=== PATIENT | female | born 1990 | race Two or more races ===

== ENCOUNTER → 2018-09-11 | Outpatient (CLI) | END | disposition home or self-care (01) ==

== ENCOUNTER → 2018-10-20 | Outpatient (CLI) | payer OTHER ==
[~2018-10-20] MED LIST: ASPI-1044 PO; GABA300C16 PO; TYL500 PO
== END | disposition home or self-care (01) ==
LOC: LAB 08:00
PROVIDERS: ATTEND Orthopaedic Surgery Adult Reconstructive Orthopaedic Surgery
DX: Z01.818 Encounter for other preprocedural examination (principal)

== ENCOUNTER → 2018-10-20 | Outpatient (CLI) | payer OTHER ==
--- NOTE | 2018-10-21 08:55 | RADRPT ---
PROCEDURE: Pelvis and left hip study CLINICAL INDICATION: Pain TECHNIQUE: AP pelvis and 2 AP and frog lateral views of the left hip were performed. 4 images are a vailable for review. COMPARISON: None. FINDINGS: There are 2 fixation pins involving the left supra-acetabular region. No evidence of acute fractures or dislocations. Moderate degenerate joint disease left hip with adjacent articular eburnation and rodrigues bchondral cyst formation involving the left femoral head. Slight flattening of the left femoral head and avascular necrosis cannot be excluded. An MRI of the left hip may be helpful. Mild degenerate linnette nt disease right hip. Soft tissues are otherwise unremarkable. IMPRESSION: 1. Fixation of the left supra-acetabular region without acute fracture dislocation. 2. Moderate degenerate joint disease left hip. Slight flattening and irregularity left femoral head and rule out avascular necrosis. 3. Mild degenerate joint disease of the right hip. RPTAT:AAJJ Physician Saranya Date Time Electronically viewed and signed by Physician Saranya on 10/21/2018 08:55 /
--- NOTE | 2018-10-22 15:09 | CONS ---
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 The patient has been having problems for the last several years. The patient's pain is an 8/10. The patient is here for preoperative visit. Face to Face Evaluation For Home Health Care: This is to certify that after date of planned surgery patient will be in need of intermittent shelter care, physical therapy and/or occupational therapy as patient will be home bound. This patient is under my care and I have authorized the services on this plan of care and will periodically review the plan. Objective Reviewed in chart. Within normal limits Exam General: Awake, alert, in no acute distress, pleasant and cooperative Heart: regular rhythm Lungs: breathing comfortably, no tachypnea or dyspnea Musculoskeletal: Well developed obese female in no apparent distress. Gait demonstrates a severe Trendelenburg with antalgic components and short leg component. Standing, the pelvis is level and supine there is a true leg length discrepancy, with the left leg 0.51.0 cm short. No tenderness over trochanteric bursa or IT band. ----- Range of motion: Flexion: 60 degrees Extension: 0 degrees Internal rotation: 0 degrees External rotation: 10 degrees Abduction: 30 degrees Adduction: 0 degrees ----- Sitting there is no pelvic obliquity. Pain at the extremes of motion of the affected hip. Skin was intact throughout both lower extremities. Sensation intact to light touch in a sural, saphenous, deep peroneal, superficial peroneal, medial and lateral plantar nerve distribution. Neurovascular exam showed 5/5 strength in the abductors, quads, EHL/tibialis anterior/gastroc. Normal and symmetrical pulses were palpated in both the dorsalis pedis and posterior tibial arteries. There is no sign of venous stasis. Assessment/Plan Chief Complaint/Hosp Course The patient has osteoarthritis of the left hip. Additional discussion was held again regarding her young age and almost certain need for a revision in the future secondary to wear. I do feel that the benefits outweigh the risk even in her young age as her symptoms are severe and a total hip arthroplasty would provide the most optimal outcome. Medical Clearance pending. ----- A lengthy discussion was held, where the patient was told that if and when the symptoms are intolerable, elective total hip replacement should be considered. The operative procedure was explained using diagrams and/or three-dimensional models. The rehabilitation, the potential risks, benefits and alternatives were discussed at length. Specific risks discussed included but were not limited to excessive blood loss and the need for transfusion and therefore the risk of transmissible disease or transfusion reaction, deep infection and the potential need for repetitive debridements, implant removal, long-term antibiotic therapy, possibly requiring deep venous access, leg-length discrepancy, dislocation, possibly recurrent, with the need for closed versus open reduction, bracing, femoral or acetabular fracture and the need for further surgery for fixation, neurovascular injury with temporary or permanent numbness, tingling, weakness or paralysis, deep venous thrombosis, pulmonary embolism and , persistent pain, weakness, or limp, late aseptic loosening and the need for revision, polyethylene wear-induced osteolysis and related problems, and finally, a wide variety of unanticipated medical problems. The opportunity to ask questions and address any concerns was provided. The patient would like to proceed with scheduling. Face to Face Evaluation For Home Health Care: This is to certify that after date of planned surgery patient will be in need of intermittent shelter care, physical therapy and/or occupational therapy as patient will be home bound. This patient is under my care and I have authorized the services on this plan of care and will periodically review the plan. Plan: Left RICK VTE risk stratification: Average VTE prophylaxis: Aspirin 81 mg twice daily Diabetes management: None Pain control: Standard Telemetry: No MRSA: Pending MALDONADO RICH MD Oct 22, 2018 15:09
== END | disposition home or self-care (01) ==
LOC: HKI 13:29
PROVIDERS: ATTEND Orthopaedic Surgery Adult Reconstructive Orthopaedic Surgery
DX: M16.12 Unilateral primary osteoarthritis, left hip (principal); Q65.89 Other specified congenital deformities of hip
CPT/HCPCS: 73502; Z7500; G0463

== ENCOUNTER → 2018-11-20 | Outpatient (CLI) | payer OTHER ==
--- NOTE | 2018-11-20 16:41 | CONS ---
Consult Date/Type/Reason Admit Date/Time Initial Consult Date Date/Time of Note DATE: 11/20/18 TIME: 16:32 Subjective DOS: 11/04/2018 Procedure: Left primary RICK 2 weeks s/p left RICK for developmental dysplasia of the hip who returns today for follow up. The patient is doing well overall. Patient was instructed touchdown weightbearing only secondary to fixation of the acetabular component. However she did not maintain this and has been using a cane. Pain is minimal. However she does continue to have some nausea. Narcotic Pain medication: none Gait Aids: cane Pain better than before surgery: Yes Pleased with outcome. Objective Exam General: Alert, oriented x3. No Acute Distress. Heart: Regular rate and rhythm. Lungs: No respiratory distress. No accessory muscle use. MUSCULOSKELETAL: Left lower Extremity: Incision clean, dry, intact. No skin breakdown, no surrounding erythema. Sensation intact to light touch in a sural, saphenous, deep peroneal, superficial peroneal, medial and lateral plantar nerve distribution. Motor is intact, patient able to dorsiflex and plantarflex ankle and extend and flex great toe. Dorsalis Pedis pulse +2, Brisk capillary refill. Compartments are soft. Rises from seated position without difficulty. Results/Medications Home Meds Active Scripts Gabapentin* (Gabapentin*) 300 Mg Capsule, 300 MG PO QHS for 30 Days, #30 CAP Prov:MALDONADO RICH MD 11/06/18 Aspirin Delayed Release (Aspirin Delayed Release) 81 Mg Tablet.dr, 81 MG PO BID for 42 Days, #84 TAB Prov:MALDONADO RICH MD 11/06/18 Acetaminophen* (Tylenol*) 500 Mg Tab, 1000 MG PO Q8 for 7 Days, TAB Prov:MALDONADO RICH MD 11/06/18 Imaging Xrays obtained in clinic today and personally reviewed by myself: AP pelvis and AP/Lat of the left hip demonstrate hip s/p RICK with hip reduced. Bone graft and multiple screws are seen. There is no interval change in cup position. Components in good position and alignment. No signs of wear, osteolysis, loosening, component failure, or fracture. No acute complications. Assessment/Plan Hospital Course (Demo Recall) Shante Salmon is doing well 2 weeks s/p left RICK for development of dysplasia of the hip. She was supposed to be touchdown weightbearing for approximately 6 weeks until bony ingrowth. However she has been more or less weightbearing as tolerated with a cane. I have instructed her to return back to touchdown weightbearing and the reasons for that. She confirmed that she understood these instructions and will go back to her crutches and walker. At 6 weeks she will be allowed to weight-bear 50% if everything looks good on x-rays. -Touchdown weightbearing left lower extremity - Posterior Hip precuations: - DVT Prophylaxis: ASA 81 mg twice daily - FU 4 weeks for repeat clinical and radiographic exam - Antibiotic dental prophylaxis for any cleaning or procedure MALDONADO RICH MD Nov 20, 2018 16:41
--- NOTE | 2018-11-21 11:28 | RADRPT ---
PROCEDURE: XR left Hip. CLINICAL INDICATION: Pain TECHNIQUE: AP and frog leg lateral views of the left hip were obtained. COMPARISON: 11/05/2018 FINDINGS: There are stable postoperative changes of total left hip arthroplasty. The hardware is intact and wel l aligned. No periprosthetic fracture or lucency is seen. A sclerotic area near the superolateral asp ect of the acetabular component may represent bone cement. There are two pin fragments in the left il iac bone superior to the hip arthroplasty hardware. Surgical jodi are seen along the lateral aspec t of the left thigh. IMPRESSION: 1. Stable postoperative changes of total left hip arthroplasty, well-aligned. RPTAT: AAEE Physician Rusty Date Time Electronically viewed and signed by Physician Rusty on 11/21/2018 11:28 RF/
== END | disposition home or self-care (01) ==
LOC: HKI 15:46
PROVIDERS: ATTEND Orthopaedic Surgery Adult Reconstructive Orthopaedic Surgery
DX: Q65.89 Other specified congenital deformities of hip (principal)
CPT/HCPCS: 73502

== ENCOUNTER → 2018-12-25 | Outpatient (CLI) | payer OTHER ==
--- NOTE | 2018-12-26 15:24 | CONS ---
Consult Date/Type/Reason Admit Date/Time Initial Consult Date Date/Time of Note DATE: 12/26/18 TIME: 15:20 Subjective DOS: 11/04/2018 Procedure: Left primary RICK 6 weeks s/p left RICK for developmental dysplasia of the hip who returns today for follow up. The patient is doing well overall. Patient was instructed touchdown weightbearing only secondary to fixation of the acetabular component. She has been using a walker. Pain is minimal. no other complaints Narcotic Pain medication: none Gait Aids: walker Pain better than before surgery: Yes Pleased with outcome. Objective Exam Objective Exam General: Alert, oriented x3. No Acute Distress. Heart: Regular rate and rhythm. Lungs: No respiratory distress. No accessory muscle use. MUSCULOSKELETAL: Left lower Extremity: Incision healed. No skin breakdown, no surrounding erythema. Sensation intact to light touch in a sural, saphenous, deep peroneal, superficial peroneal, medial and lateral plantar nerve distribution. Motor is intact, patient able to dorsiflex and plantarflex ankle and extend and flex great toe. Dorsalis Pedis pulse +2, Brisk capillary refill. Compartments are soft. Rises from seated position without difficulty. Results/Medications Home Meds Active Scripts Gabapentin* (Gabapentin*) 300 Mg Capsule, 300 MG PO QHS for 30 Days, #30 CAP Prov:MALDONADO RICH MD 11/06/18 Aspirin Delayed Release (Aspirin Delayed Release) 81 Mg Tablet.dr, 81 MG PO BID for 42 Days, #84 TAB Prov:MALDONADO RICH MD 11/06/18 Acetaminophen* (Tylenol*) 500 Mg Tab, 1000 MG PO Q8 for 7 Days, TAB Prov:MALDONADO RICH MD 11/06/18 Imaging Xrays obtained in clinic today and personally reviewed by myself: AP pelvis and AP/Lat of the left hip demonstrate hip s/p RICK with hip reduced. Bone graft and multiple screws are seen. There is no interval change in cup position. Components in good position and alignment. No signs of wear, osteol ysis, loosening, component failure, or fracture. No acute complications. Assessment/Plan Hospital Course (Demo Recall) Shante Salmon is doing well 6 weeks s/p left RICK for development of dysplasia of the hip. She has been touchdown weightbearing since surgery. At this time x- rays are stable and will allow her to bear weight at 50%. She will be followed closely clinically and radiographically in 2 weeks and if everything looks good at that time she will be made weightbearing as tolerated and then follow-up 4 weeks from there which will be 12 weeks postop. - 50% weightbearing left lower extremity - Posterior Hip precuations: - FU 2 weeks for repeat clinical and radiographic exam - Antibiotic dental prophylaxis for any cleaning or procedure MALDONADO RICH MD Dec 26, 2018 15:24
== END | disposition home or self-care (01) ==
LOC: HKI 15:31
PROVIDERS: ATTEND Orthopaedic Surgery Adult Reconstructive Orthopaedic Surgery
DX: M25.552 Pain in left hip (principal)
CPT/HCPCS: 73502

== ENCOUNTER → 2019-01-15 | Outpatient (CLI) | payer OTHER ==
--- NOTE | 2019-01-15 18:11 | CONS ---
Consult Date/Type/Reason Admit Date/Time Initial Consult Date Date/Time of Note DATE: 01/15/19 TIME: 18:05 Subjective DOS: 11/04/2018 Procedure: Left primary RICK 8 weeks s/p left primary RICK for developed mental dysplasia of the hip who returns today for follow up. The patient is doing well overall. Pain is none. The patient was instructed to transition from touchdown weightbearing to 50% weightbearing at last clinic visit 2 weeks ago. The plan was to reevaluate on x-rays for stability of implants before fully weightbearing. However the patient has not been following instructions and is full weightbearing. Narcotic Pain medication: None Gait Aids: None Pain better than before surgery: yes Pleased with outcome. Objective Vitals Weight: 230 pounds Height: 5 foot 10 inch BMI: 33 Temperature: 98.4 Heart Rate: 66 Blood Pressure: 118/64 Respiratory Rate: 12 Exam General: Alert, oriented x3. No Acute Distress. Heart: Regular rate and rhythm. Lungs: No respiratory distress. No accessory muscle use. MUSCULOSKELETAL: Left lower Extremity: Incision is healed. No skin breakdown, no surrounding erythema. Sensation intact to light touch in a sural, saphenous, deep peroneal, superficial peroneal, medial and lateral plantar nerve distribution. Motor is intact, patient able to dorsiflex and plantarflex ankle and extend and flex great toe. Dorsalis Pedis pulse +2, Brisk capillary refill. Compartments are soft. Rises from seated position without difficulty. Gait: Quick pace. Mild limp. My Trendelenburg. Old no gait aids. Results/Medications Home Meds Active Scripts Gabapentin* (Gabapentin*) 300 Mg Capsule, 300 MG PO QHS for 30 Days, #30 CAP Prov:MALDONADO RICH MD 11/06/18 Aspirin Delayed Release (Aspirin Delayed Release) 81 Mg Tablet.dr, 81 MG PO BID for 42 Days, #84 TAB Prov:MALDONADO RICH MD 11/06/18 Acetaminophen* (Tylenol*) 500 Mg Tab, 1000 MG PO Q8 for 7 Days, TAB Prov:MALDONADO RICH MD 11/06/18 Imaging Xrays obtained in clinic today and personally reviewed by myself: AP pelvis and AP/Lat of the left hip demonstrate hip s/p RICK with hip reduced. Bone graft and multiple screws are seen. There is no interval change in cup po sition. Components in good position and alignment. No signs of wear, osteolysis, loosening, component failure, or fracture. No acute complications. No interval change of component placement Assessment/Plan Hospital Course (Demo Recall) 28-year-old female doing well 8 weeks s/p left primary RICK. Components are stable on radiographs. Patient has no pain. Patient can continue to weight- bear as tolerated. Patient should refrain from high-impact activities until 3 months from surgery. -Weight-bear as tolerated - Posterior Hip precautions: Continue - DVT Prophylaxis: Discontinue - FU 4 weeks for repeat clinical and radiographic exam and begin physical therapy at that time - Antibiotic dental prophylaxis for any cleaning or procedure MALDONADO RICH MD Jan 15, 2019 18:11
== END | disposition home or self-care (01) ==
LOC: HKI 15:46
PROVIDERS: ATTEND Orthopaedic Surgery Adult Reconstructive Orthopaedic Surgery
DX: Q65.89 Other specified congenital deformities of hip (principal); Z96.642 Presence of left artificial hip joint
CPT/HCPCS: 73502

== ENCOUNTER → 2019-02-23 | Outpatient (CLI) | payer OTHER ==
--- NOTE | 2019-02-23 18:01 | CONS ---
Consult Date/Type/Reason Admit Date/Time Initial Consult Date Date/Time of Note DATE: 02/23/19 TIME: 17:58 Subjective DOS: 11/04/2018 Procedure: Left primary RICK 16 weeks s/p left RICK for develop mental dysplasia of the hip who returns today for follow up. The patient is doing well overall. Pain is none. She is weightbearing as tolerated. Narcotic Pain medication: None Gait Aids: None Pain better than before surgery: Yes Pleased with outcome. Objective Exam General: Alert, oriented x3. No Acute Distress. Heart: Regular rate and rhythm. Lungs: No respiratory distress. No accessory muscle use. MUSCULOSKELETAL: Left lower Extremity: Sensation intact to light touch in a sural, saphenous, deep peroneal, superficial peroneal, medial and lateral plantar nerve distribution. Motor is intact, patient able to dorsiflex and plantarflex ankle and extend and flex great toe. Dorsalis Pedis pulse +2, Brisk capillary refill. Compartments are soft. Rises from seated position without difficulty. Gait: Brisk pace. Minimal limp. Minimal Trendelenburg. No gait aids. Results/Medications Home Meds Active Scripts Gabapentin* (Gabapentin*) 300 Mg Capsule, 300 MG PO QHS for 30 Days, #30 CAP Prov:MALDONADO RICH MD 11/06/18 Aspirin Delayed Release (Aspirin Delayed Release) 81 Mg Tablet.dr, 81 MG PO BID for 42 Days, #84 TAB Prov:MALDONADO RICH MD 11/06/18 Acetaminophen* (Tylenol*) 500 Mg Tab, 1000 MG PO Q8 for 7 Days, TAB Prov:MALDONADO RICH MD 11/06/18 Imaging Xrays obtained in clinic today and personally reviewed by myself: AP pelvis and AP/Lat of the left hip demonstrate hip s/p RICK with hip reduced. Bone graft is seen between the cup and acetabulum. This is stable from last x- ray. Components in good position and alignment. There has been no interval change in positioning of either the acetabular or femoral components. No signs of wear, osteolysis, loosening, component failure, or fracture. No acute complications. Assessment/Plan Hospital Course (Demo Recall) 28-year-old female doing well 16 weeks s/p left RICK - Avoid high impact activities - Posterior Hip precautions: May discontinue - FU 3 months for repeat clinical and radiographic exam - Antibiotic dental prophylaxis for any cleaning or procedure MALDONADO RICH MD February 23, 2019 18:01
--- NOTE | 2019-02-24 08:56 | RADRPT ---
PROCEDURE: CR Pelvis and Left Hip CLINICAL INDICATION: Pain TECHNIQUE: Radiograph is submitted including an AP pelvis and 2 additional images of the left hip. COMPARISON: 01/15/2019 FINDINGS: Osseous structures: There is a well seated total left hip replacement again noted. There is no eviden ce of infection or loosening. To K pins project through the left supra-acetabular ilium, presumably i nternally fixing a healed fracture or osteotomy. No acute fracture or osseous destruction is evident. Hip joints: The left prosthetic hip joint and the right hip joint are anatomically maintained. Sacroiliac joints: The sacroiliac joints appear unremarkable with no significant sclerosis or erosion . Soft tissues: Appear unremarkable. IMPRESSION: 1. A well seated total left hip replacement is again evident without evidence of infection or loosen ing. 2. Pins project through the supra-acetabular left ilium, presumably the site of a healed fracture or osteotomy. 3. Otherwise, unremarkable pelvis and left hip series without significant change. Physician Rupa Date Time Electronically viewed and signed by Physician Rupa on 02/24/2019 08:55 /
== END | disposition home or self-care (01) ==
LOC: HKI 14:59
PROVIDERS: ATTEND Orthopaedic Surgery Adult Reconstructive Orthopaedic Surgery
DX: Q65.89 Other specified congenital deformities of hip (principal)
CPT/HCPCS: 73502; Z7500; G0463